=== PATIENT | female | born 1940 | race Hispanic/Latino ===

== ENCOUNTER 2018-02-28 07:57 | Emergency (ER) | payer OTHER, MEDICARE ==
[2018-02-28] MEDS ORDERED: METOCLOPRAMIDE 10 MG/2 ML VIAL ONE (08:42)
[2018-02-28] MEDS ORDERED: DiphenhydrAMINE HCL 25 MG/10 ML ELIXIR UDCUP ONE (08:42)
[2018-02-28 08:43] LABS: BASOPHILS % (AUTO) 0.5 % (0.0-5.0); EOSINOPHILS % (AUTO) 1.9 % (0.0-8.0); LYMPHOCYTES % (AUTO) 16.3 % (21.0-51.0); MEAN CORPUSCULAR HEMOGLOBIN 29.9 pg (27.0-33.0); MEAN CORPUSCULAR HGB CONC 34.2 g/dL (32.0-36.0); MEAN CORPUSCULAR VOLUME 87.5 fL (79-99); MONOCYTES % (AUTO) 5.1 % (3.0-13.0); NEUTROPHILS % (AUTO) 76.2 % (40.0-77.0); PLATELET COUNT (AUTO) 237 K/uL (130-400); RED BLOOD CELL COUNT(AUTO) 4.46 MIL/uL (4.00-5.50); RED CELL DISTRIBUTION WIDTH 14.4 % (11.0-15.5); WHITE BLOOD COUNT (AUTO) 9.4 K/uL (4.8-10.8)
[2018-02-28] MEDS ORDERED: ONDANSETRON HCL MDV 20ML 2 MG/ML VIAL ONE (08:43)
[2018-02-28] MEDS ORDERED: MORPHINE SULFATE 4 MG/1ML SYG ONE (08:44)
[2018-02-28 08:58] LABS: ALBUMIN 3.8 g/dL (3.5-5.0); BILIRUBIN,TOTAL 0.4 mg/dL (0.2-1.0); TOTAL PROTEIN, SERUM 7.9 g/dL (6.0-8.3)
== END 2018-02-28 11:46 | disposition home or self-care (01) ==
LOC: EDH 07:57
DX: G44.209 Tension-type headache, unspecified, not intractable (principal); R42 Dizziness and giddiness; Z88.6 Allergy status to analgesic agent
CPT/HCPCS: 36415; 80053; 84484; 85025; 93005; 96374; 96375; 99285; J2270; J2765

== ENCOUNTER 2018-05-15 07:56 | Emergency (ER) | payer OTHER, MEDICARE ==
[2018-05-15 08:32] LABS: BASOPHILS % (AUTO) 0.5 % (0.0-5.0); EOSINOPHILS % (AUTO) 2.2 % (0.0-8.0); HEMATOCRIT 37.2 % (36-48); LYMPHOCYTES % (AUTO) 12.2 % (21.0-51.0); MEAN CORPUSCULAR HEMOGLOBIN 30.1 pg (27.0-33.0); MEAN CORPUSCULAR VOLUME 88.5 fL (79-99); MONOCYTES % (AUTO) 7.7 % (3.0-13.0); NEUTROPHILS % (AUTO) 77.4 % (40.0-77.0); PLATELET COUNT (AUTO) 287 K/uL (130-400); RED BLOOD CELL COUNT(AUTO) 4.21 MIL/uL (4.00-5.50); RED CELL DISTRIBUTION WIDTH 13.9 % (11.0-15.5); WHITE BLOOD COUNT (AUTO) 7.4 K/uL (4.8-10.8)
[2018-05-15 08:39] LABS: CREATININE 0.8 mg/dL (0.5-1.5); POTASSIUM 4.4 mmol/L (3.5-5.1)
[2018-05-15 08:43] LABS: ALBUMIN 3.7 g/dL (3.5-5.0); BILIRUBIN,TOTAL 0.3 mg/dL (0.2-1.0); TOTAL PROTEIN, SERUM 8.2 g/dL (6.0-8.3)
[2018-05-15] MEDS ORDERED: SODIUM CHLORIDE 0.9% 1000ML 1,000 ML IV ONE (09:05)
[2018-05-15] MEDS ORDERED: METHYLPREDNISOLONE SOD SUCC 125MG/2ML VIAL ONE (09:06)
[2018-05-15] MEDS ORDERED: IPRATROPIUM/ALBUTEROL SULFATE 3 ML SOLUTION IH ONE (09:10)
[2018-05-15] MEDS ORDERED: CLONIDINE HCL 0.1 MG TABLET ONE (10:29)
== END 2018-05-15 10:49 | disposition home or self-care (01) ==
LOC: EDH 07:56
DX: J11.1 Influenza due to unidentified influenza virus with other respiratory manifestations (principal); J20.9 Acute bronchitis, unspecified; Z88.0 Allergy status to penicillin; Z88.6 Allergy status to analgesic agent
CPT/HCPCS: 36415; 71046; 80053; 83605; 85025; 87040 ×2; 87804 ×2; 94640; 96374; 99284; J2930; J7030

== ENCOUNTER 2018-10-27 09:59 | Emergency (ER) | payer OTHER, MEDICARE ==
[2018-10-27] MEDS ORDERED: DiphenhydrAMINE HCL 50 MG/ML VIAL ONE (10:10)
[2018-10-27] MEDS ORDERED: ONDANSETRON HCL 4 MG/2 ML VIAL ONE (10:11)
[2018-10-27] MEDS ORDERED: KETOROLAC TROMETHAMINE 15MG/ML ONE (10:11)
[2018-10-27] MEDS ORDERED: SODIUM CHLORIDE 0.9% 1000ML 1,000 ML IV ONE (10:12)
[2018-10-27] MEDS ORDERED: PROCHLORPERAZINE EDISYLATE 10 MG/2 ML VIAL ONE (11:25)
[2018-10-27] MEDS ORDERED: SODIUM CHLORIDE 0.9% 500ML 500 ML IV ONE (11:26)
[2018-10-27 12:28] LABS: APPEARANCE,URINE Clear (CLEAR); BILIRUBIN,URINE Negative (NEGATIVE); COLOR,URINE Yellow (YELLOW); GLUCOSE, URINE (UA) Negative (NEGATIVE); KETONES,URINE Negative (NEGATIVE); LEUKOCYTE ESTERASE ,URINE Trace (NEGATIVE); NITRATE,URINE Negative (NEGATIVE); OCCULT BLOOD,URINE Negative (NEGATIVE); PROTEIN,URINE Negative (NEGATIVE); UROBILINOGEN,URINE 0.2 mg/dL (0.2-1.0)
[2018-10-27 12:29] LABS: BACTERIA,URINE Rare /HPF (None Seen); RBC,URINE 0-1 /HPF (0-1); SQUAMOUS EPITHELIAL CELL,UR Rare /HPF (0-2); WBC,URINE 0-1 /HPF (0-1)
== END 2018-10-27 12:43 | disposition home or self-care (01) ==
LOC: EDH 09:59
DX: G44.89 Other headache syndrome (principal); I10 Essential (primary) hypertension; Z98.51 Tubal ligation status; Z88.6 Allergy status to analgesic agent; Z88.0 Allergy status to penicillin
CPT/HCPCS: 70450; 81001; 96374; 96375; 99285; J0780; J1200; J1885; J2405; J7030; J7040

== ENCOUNTER 2019-09-30 07:41 | Inpatient (IN) | payer OTHER, MEDICARE ==
[~2019-09-30] VITALS: Ht 162.6 cm; Wt 55.7 kg
[2019-09-30 08:54] LABS: BASOPHILS % (AUTO) 0.6 % (0.0-5.0); EOSINOPHILS % (AUTO) 1.7 % (0.0-8.0); HEMATOCRIT 35.2 % (36-48); LYMPHOCYTES % (AUTO) 16.2 % (21.0-51.0); MEAN CORPUSCULAR HEMOGLOBIN 27.8 pg (27.0-33.0); MEAN CORPUSCULAR HGB CONC 31.5 g/dL (32.0-36.0); MONOCYTES % (AUTO) 5.5 % (3.0-13.0); NEUTROPHILS % (AUTO) 75.8 % (40.0-77.0); PLATELET COUNT (AUTO) 249 K/uL (130-400); RED CELL DISTRIBUTION WIDTH 13.7 % (11.0-15.5); WHITE BLOOD COUNT (AUTO) 8.2 K/uL (4.8-10.8)
[2019-09-30 09:03] LABS: CREATININE 0.9 mg/dL (0.5-1.5); POTASSIUM 3.9 mmol/L (3.5-5.1)
[2019-09-30 09:06] LABS: INR 1.01 (0.85-1.15); PARTIAL THROMBOPLASTIN TIME 24.1 SEC (26.3-35.5); PROTHROMBIN TIME 10.9 SEC (9.6-11.6)
[2019-09-30] MEDS ORDERED: ALBUTEROL INHALER 90MCG/INH IH ONE (09:06)
[2019-09-30] MEDS ORDERED: MAGNESIUM 2GM PREMIX 50ML 50 ML IV ONE ×2 (09:06→09:09)
[2019-09-30] MEDS ORDERED: METHYLPREDNISOLONE SOD SUCC 125MG/2ML VIAL ONE ×2 (09:06→09:09)
[2019-09-30 09:12] LABS: ALBUMIN 3.8 g/dL (3.5-5.0); BILIRUBIN,TOTAL 0.5 mg/dL (0.2-1.0); TOTAL PROTEIN, SERUM 7.4 g/dL (6.0-8.3)
[2019-09-30 09:34] LABS: B-TYPE NATRIURETIC PEPTIDE 1370 pg/mL (0-100)
[2019-09-30] MEDS ORDERED: IPRATROPIUM/ALBUTEROL SULFATE 3 ML SOLUTION IH ONE (10:02)
[2019-09-30] MEDS ORDERED: MORPHINE SULFATE 2 MG/ML 1ML SYG ONE (10:12)
[2019-09-30 10:29] LABS: ABG BASE EXCESS -4.9 mmol/L (-2.0-3.0); ABG HCO3 21.6 mmol/L (21.0-28.0); ABG OXYGEN SATURATION 91.2 % (95.0-99.0); ABG PCO2 45 mmHg (32-45)
[2019-09-30] MEDS ORDERED: MAGNESIUM 2GM PREMIX 50ML 50 ML IV PRN (11:15)
[2019-09-30] MEDS ORDERED: ACETAMINOPHEN 325 MG TAB PO PRN (11:15)
[2019-09-30] MEDS ORDERED: DiphenhydrAMINE HCL 50 MG/ML VIAL IV PRN (11:15)
[2019-09-30] MEDS ORDERED: ZOLPIDEM TARTRATE 5 MG TAB PO PRN (11:15)
[2019-09-30] MEDS ORDERED: MORPHINE SULFATE 2 MG/ML 1ML SYG IV PRN (11:15)
[2019-09-30] MEDS ORDERED: DIPHENHYDRAMINE HCL 25 MG CAPSULE PO PRN (11:15)
[2019-09-30] MEDS ORDERED: NITROGLYCERIN 0.4 MG SL TAB SL PRN (11:15)
[2019-09-30] MEDS ORDERED: POTASSIUM CHLORIDE 20MEQ/100ML 100 ML IV PRN (11:15)
[2019-09-30] MEDS ORDERED: GUAIFENESIN-DM 200/20 MG 10 ML PO PRN (11:15)
[2019-09-30] MEDS ORDERED: HYDRALAZINE HCL 20 MG/ML VIAL IV PRN (11:15)
[2019-09-30] MEDS ORDERED: ONDANSETRON HCL 4 MG/2 ML VIAL IV PRN (11:15)
[2019-09-30] MEDS ORDERED: LIDOCAINE HCL-MPF 1% 2ML VIAL IJ PRN (11:15)
[2019-09-30] MEDS ORDERED: MAG HYDROX/AL HYDROX/SIMETH ES 30 ML SUSP UDCUP PO PRN (11:15)
[2019-09-30] MEDS ORDERED: ALBUTEROL SULFATE/IPRATROPIUM 103/18 MCG/PUFF 14.7 GM INHR IH SCH (11:15)
[2019-09-30] MEDS ORDERED: ACETAMINOPHEN-CODEINE 300/30MG TAB PO PRN (11:15)
[2019-09-30] MEDS: METHYLPREDNISOLONE SOD SUCC 125MG/2ML VIAL IV SCH ×2 (11:15→20:14)
[2019-09-30] MEDS ORDERED: CEFTRIAXONE SODIUM 2 GM VIAL ONE (11:25)
[2019-09-30] MEDS ORDERED: LEVOFLOXACIN 750 MG/D5W 150 ML 0 ML ONE (11:29)
[2019-09-30] MEDS ORDERED: INSULIN HUMULIN R 100 UNIT/ML 3ML SQ SCH (11:30)
[2019-09-30] MEDS ORDERED: LEVOFLOXACIN 500 MG/D5W 100 ML 100 ML ONE (11:30)
[2019-09-30] MEDS: INSULIN HUMULIN R 100 UNIT/ML 3ML SQ SCH ×3 (11:30→20:17)
[2019-09-30] MEDS: ALBUTEROL SULFATE/IPRATROPIUM 103/18 MCG/PUFF 14.7 GM INHR IH SCH ×4 (12:15→23:52)
[2019-09-30 12:25] VITALS: BP 152/79
[2019-09-30] MEDS: CEFTRIAXONE SODIUM 1 GM IV SCH (14:58)
[2019-09-30] MEDS: AZITHROMYCIN 500MG+NS 250ML 250 ML IV SCH (14:58)
[2019-09-30] MEDS: FUROSEMIDE 10 MG/ML 4ML VIAL IV SCH ×2 (14:59→23:51)
--- NOTE | 2019-09-30 15:19 | NUR ---
PT C/O NAUSEA RAMSEY HA AWARE, ZOFRAN 4MG IV GIVEN.
[2019-09-30 16:45] VITALS: BP 124/71
--- NOTE | 2019-09-30 16:57 | NUR ---
INSAIMA SPOKE TO ROME, SON, VIA PHONE- STATES PATIENT LIVES WITH HIM, REQUIRES NO DME AT PRESENT BUT HAD WKR AVAILABLE, DAUGHTER EZEQUIEL IS PROVIDER; NUMBER IN FACE SHEE INCORRECT, PROVIDED NEW NUMBER [id number]; EZEQUIEL DRIVES TO APPOINTMENT AND ASSIST WITH ADLS, HOME SAFE AND ACCESSIBLE , DCP IS HOME Addendum: 09/30/19 at 1659 by LISSETH SALCIDO RN CM Amended: Links added.
[2019-09-30 17:18] LABS: TROPONIN I 0.1 ng/mL (0.00-0.06)
[2019-09-30 20:08] VITALS: BP 130/72
[2019-09-30] MEDS: OSELTAMIVIR PHOSPHATE 75 MG CAP PO SCH (20:14)
[2019-09-30] MEDS: MONTELUKAST SODIUM 10 MG TAB PO SCH (20:14)
[2019-09-30] MEDS: FAMOTIDINE/PF 20 MG/2 ML VIAL IV SCH (20:14)
[2019-09-30] MEDS ORDERED: PNEUMOCOCCAL VACCINE POLYVALENT 0.5 ML/VIAL [PPV] IM SCH (21:00)
[2019-09-30 22:17] LABS: TROPONIN I 0.14 ng/mL (0.00-0.06)
[2019-10-01] VITALS (7 sets, daily range): BP systolic 122–143; BP diastolic 66–81
[2019-10-01] MEDS: ALBUTEROL SULFATE/IPRATROPIUM 103/18 MCG/PUFF 14.7 GM INHR IH SCH ×5 (04:15→19:58)
[2019-10-01 04:39] LABS: BASOPHILS % (AUTO) 0.2 % (0.0-5.0); HEMATOCRIT 33.7 % (36-48); LYMPHOCYTES % (AUTO) 9.7 % (21.0-51.0); MEAN CORPUSCULAR HEMOGLOBIN 28.3 pg (27.0-33.0); MEAN CORPUSCULAR HGB CONC 32.3 g/dL (32.0-36.0); MEAN CORPUSCULAR VOLUME 87.5 fL (79-99); MONOCYTES % (AUTO) 2.5 % (3.0-13.0); NEUTROPHILS % (AUTO) 86.8 % (40.0-77.0); PLATELET COUNT (AUTO) 257 K/uL (130-400); RED BLOOD CELL COUNT(AUTO) 3.85 MIL/uL (4.00-5.50); RED CELL DISTRIBUTION WIDTH 13.6 % (11.0-15.5); WHITE BLOOD COUNT (AUTO) 6.5 K/uL (4.8-10.8)
[2019-10-01] MEDS: METHYLPREDNISOLONE SOD SUCC 125MG/2ML VIAL IV SCH ×3 (04:51→18:27)
[2019-10-01 04:59] LABS: INR 1.07 (0.85-1.15); PARTIAL THROMBOPLASTIN TIME 23.9 SEC (26.3-35.5); PROTHROMBIN TIME 11.5 SEC (9.6-11.6)
[2019-10-01 05:03] LABS: B-TYPE NATRIURETIC PEPTIDE 3430 pg/mL (0-100)
[2019-10-01 05:15] LABS: ALANINE AMINOTRANSFERASE 19 U/L (12-78); ALBUMIN 3.9 g/dL (3.5-5.0); ASPARTATE AMINOTRANSFERASE 19 U/L (10-37); BILIRUBIN,TOTAL 0.5 mg/dL (0.2-1.0); CARBON DIOXIDE 30 mmol/L (21-32); CHLORIDE 100 mmol/L (101-111); CREATINE KINASE, TOTAL 229 U/L (21-232); GLOMERULAR FILTR. RATE CALC 57 mL/min (>60); GLUCOSE,RANDOM 135 mg/dL (70-105); LACTATE DEHYDROGENASE 239 U/L (81-234); MYOGLOBIN 220 ng/mL (10-92); POTASSIUM 3.2 mmol/L (3.5-5.1); SODIUM SERUM 137 mmol/L (136-145); TOTAL PROTEIN, SERUM 7.7 g/dL (6.0-8.3); TROPONIN I 0.18 ng/mL (0.00-0.06); UREA NITROGEN, BLOOD 19 mg/dL (7-18)
[2019-10-01 05:42] LABS: ERYTHROCYTE SEDIMENTATION RATE 15 MM/HR (0-30)
[2019-10-01] MEDS: INSULIN HUMULIN R 100 UNIT/ML 3ML SQ SCH ×4 (06:07→21:00)
[2019-10-01] MEDS: POTASSIUM CHLORIDE 10% ELIXIR 20 MEQ/15 ML UDCUP PO PRN ×3 (06:17→12:56)
--- NOTE | 2019-10-01 06:18 | NUR ---
CRITICAL LAB VALUE 0515: BENCHMARK COMPUTER ENGINEER PAGED AT THIS TIME BY SALES SERVICE MANAGER 0520: IZABELLA UMANA RETURNED PAGE. PRIMARY NURSE, MATI MCKEON RN, INFORMED COMPUTER ENGINEER OF D-DIMER VALUE OF [id number]. NO NEW ORDERS RECEIVED
[2019-10-01] MEDS: OSELTAMIVIR PHOSPHATE 75 MG CAP PO SCH ×2 (07:47→19:54)
[2019-10-01] MEDS: FAMOTIDINE/PF 20 MG/2 ML VIAL IV SCH ×2 (07:47→19:54)
[2019-10-01] MEDS ORDERED: ENOXAPARIN SODIUM 40 MG/0.4 ML SYRINGE SQ SCH (09:00)
--- NOTE | 2019-10-01 12:38 | NUR ---
DR. RON IN ROOM SPEAKING WITH PT. RE:PLAN OF CARE. QUESTIONS ANSWERED BY DR. RON; PT. VERBALIZED UNDERSTANDING.
[2019-10-01] MEDS: CEFTRIAXONE SODIUM 1 GM IV SCH (12:52)
[2019-10-01] MEDS: FUROSEMIDE 10 MG/ML 4ML VIAL IV SCH (12:52)
[2019-10-01] MEDS: LACTULOSE 20 GM/30 ML UDCUP PO PRN (12:52)
[2019-10-01] MEDS: AZITHROMYCIN 500MG+NS 250ML 250 ML IV SCH (12:52)
[2019-10-01 13:06] LABS: ABG BASE EXCESS 2.8 mmol/L (-2.0-3.0); ABG HCO3 27.8 mmol/L (21.0-28.0); ABG OXYGEN SATURATION 97.2 % (95.0-99.0); ABG PCO2 44 mmHg (32-45)
[2019-10-01 13:06] LABS: ABG BASE EXCESS -4.6 mmol/L (-2.0-3.0); ABG HCO3 21.5 mmol/L (21.0-28.0); ABG OXYGEN SATURATION 96.8 % (95.0-99.0); ABG PCO2 43 mmHg (32-45)
[2019-10-01] MEDS: ACETAMINOPHEN 325 MG TAB PO PRN (16:32)
--- NOTE | 2019-10-01 17:04 | NUR ---
BLOOD SUGAR 67. DENIES C/O AT THIS TIME. PT. PROVIDED WITH DINNER.
[2019-10-01] MEDS: MONTELUKAST SODIUM 10 MG TAB PO SCH (19:54)
[2019-10-01] MEDS: ENOXAPARIN SODIUM 30 MG/0.3 ML SQ SCH (19:55)
[2019-10-02] MEDS: ALBUTEROL SULFATE/IPRATROPIUM 103/18 MCG/PUFF 14.7 GM INHR IH SCH ×6 (00:15→20:39)
[2019-10-02] MEDS: FUROSEMIDE 10 MG/ML 4ML VIAL IV SCH ×2 (00:16→13:01)
[2019-10-02] MEDS: METHYLPREDNISOLONE SOD SUCC 125MG/2ML VIAL IV SCH ×3 (03:07→20:28)
[2019-10-02 03:26] VITALS: BP 120/70
[2019-10-02 04:39] LABS: BASOPHILS % (AUTO) 0.1 % (0.0-5.0); HEMATOCRIT 33.9 % (36-48); LYMPHOCYTES % (AUTO) 5.7 % (21.0-51.0); MEAN CORPUSCULAR HEMOGLOBIN 27.9 pg (27.0-33.0); MEAN CORPUSCULAR HGB CONC 31.6 g/dL (32.0-36.0); MEAN CORPUSCULAR VOLUME 88.5 fL (79-99); NEUTROPHILS % (AUTO) 89.7 % (40.0-77.0); PLATELET COUNT (AUTO) 266 K/uL (130-400); RED BLOOD CELL COUNT(AUTO) 3.83 MIL/uL (4.00-5.50); RED CELL DISTRIBUTION WIDTH 13.8 % (11.0-15.5); WHITE BLOOD COUNT (AUTO) 12.9 K/uL (4.8-10.8)
[2019-10-02 04:56] LABS: ALBUMIN 3.7 g/dL (3.5-5.0); BILIRUBIN,TOTAL 0.3 mg/dL (0.2-1.0); CREATININE 1.2 mg/dL (0.5-1.5); MAGNESIUM 2.5 mg/dL (1.80-2.40); PHOSPHORUS 4.4 mg/dL (2.5-4.9); POTASSIUM 4.5 mmol/L (3.5-5.1); TOTAL PROTEIN, SERUM 7.3 g/dL (6.0-8.3)
[2019-10-02 05:08] LABS: B-TYPE NATRIURETIC PEPTIDE 1560 pg/mL (0-100)
[2019-10-02] MEDS: INSULIN HUMULIN R 100 UNIT/ML 3ML SQ SCH ×4 (06:44→21:00)
[2019-10-02 08:36] VITALS: BP 130/72
[2019-10-02] MEDS: OSELTAMIVIR PHOSPHATE 75 MG CAP PO SCH ×2 (09:38→20:27)
[2019-10-02] MEDS: FAMOTIDINE/PF 20 MG/2 ML VIAL IV SCH ×2 (09:38→20:27)
[2019-10-02] MEDS: ENOXAPARIN SODIUM 30 MG/0.3 ML SQ SCH ×2 (09:54→20:28)
--- NOTE | 2019-10-02 11:07 | NUR ---
CHART REVIEWED, DCP REAMINS TO HOME. STILL NICOLLE CROSS PRCR PANEL NEG, 02 97 ON 2 LITRES, FAMILY EMPHASIZED PT WOULD BE HAPPIER AT HOME WHEN DCD. WILL EXPECT THAT ON DISCHARGE. Addendum: 10/02/19 at 1108 by LISSETH SALCIDO RN CM Amended: Links added.
[2019-10-02 12:10] VITALS: BP 119/70
[2019-10-02] MEDS: CEFTRIAXONE SODIUM 1 GM IV SCH (12:57)
[2019-10-02] MEDS: AZITHROMYCIN 500MG+NS 250ML 250 ML IV SCH (12:57)
[2019-10-02 16:35] VITALS: BP 118/70
[2019-10-02 20:24] VITALS: BP 115/67
[2019-10-02] MEDS: MONTELUKAST SODIUM 10 MG TAB PO SCH (20:27)
[2019-10-02 23:55] VITALS: BP 122/67
[2019-10-03] MEDS: METHYLPREDNISOLONE SOD SUCC 125MG/2ML VIAL IV SCH ×2 (02:09→09:48)
[2019-10-03] MEDS: FUROSEMIDE 10 MG/ML 4ML VIAL IV SCH ×2 (02:10→13:26)
[2019-10-03 04:12] VITALS: BP 125/75
--- NOTE | 2019-10-03 04:50 | NUR ---
PT ARRIVED TO FLOOR. TRANSFERRED DUE TO NEGATIVE COVID RESULTS. PT STABLE. CAME IN DUE TO ASTHMA EXACERBATION.
[2019-10-03 06:13] LABS: HEMATOCRIT 35.4 % (36-48); LYMPHOCYTES % (AUTO) 6.9 % (21.0-51.0); MEAN CORPUSCULAR HEMOGLOBIN 28.2 pg (27.0-33.0); MEAN CORPUSCULAR HGB CONC 32.2 g/dL (32.0-36.0); MEAN CORPUSCULAR VOLUME 87.6 fL (79-99); MONOCYTES % (AUTO) 2.1 % (3.0-13.0); NEUTROPHILS % (AUTO) 90.3 % (40.0-77.0); PLATELET COUNT (AUTO) 244 K/uL (130-400); RED BLOOD CELL COUNT(AUTO) 4.04 MIL/uL (4.00-5.50); RED CELL DISTRIBUTION WIDTH 13.6 % (11.0-15.5); WHITE BLOOD COUNT (AUTO) 9.1 K/uL (4.8-10.8)
[2019-10-03] MEDS: ALBUTEROL SULFATE/IPRATROPIUM 103/18 MCG/PUFF 14.7 GM INHR IH SCH ×4 (06:15→16:15)
[2019-10-03 06:21] LABS: CREATININE 1.2 mg/dL (0.5-1.5)
[2019-10-03] MEDS: INSULIN HUMULIN R 100 UNIT/ML 3ML SQ SCH ×4 (06:39→21:00)
[2019-10-03 08:00] VITALS: BP 133/76
[2019-10-03 08:32] LABS: ABG BASE EXCESS 4.9 mmol/L (-2.0-3.0); ABG HCO3 29.8 mmol/L (21.0-28.0); ABG OXYGEN SATURATION 98.4 % (95.0-99.0); ABG PCO2 44 mmHg (32-45)
[2019-10-03] MEDS: FAMOTIDINE/PF 20 MG/2 ML VIAL IV SCH ×2 (09:46→22:01)
[2019-10-03] MEDS: OSELTAMIVIR PHOSPHATE 75 MG CAP PO SCH ×2 (09:47→21:57)
[2019-10-03] MEDS: ENOXAPARIN SODIUM 30 MG/0.3 ML SQ SCH ×2 (09:47→22:01)
[2019-10-03] MEDS: ACETAMINOPHEN 325 MG TAB PO PRN (09:47)
[2019-10-03] MEDS: CEFTRIAXONE SODIUM 1 GM IV SCH (09:51)
[2019-10-03] MEDS: AZITHROMYCIN 500MG+NS 250ML 250 ML IV SCH (09:51)
[2019-10-03 11:37] VITALS: BP 124/65
[2019-10-03 16:00] VITALS: BP 120/70
[2019-10-03 19:00] VITALS: BP 134/71
--- NOTE | 2019-10-03 21:00 | NUR ---
PT RA, NO DISTRESS NOTED. ABLE TO TAKE MEDICATIONS WELL. STATES NO COMPLAINTS. ABLE TO AMBULATE. PENDING TO HAVE FAMILY SPEAK WITH DR. MONTANA REGARDING TREATMENT PLAN.
[2019-10-03] MEDS: MONTELUKAST SODIUM 10 MG TAB PO SCH (21:57)
[2019-10-03] MEDS: CARVEDILOL 12.5 MG TABLET PO SCH (21:57)
[2019-10-03 23:00] VITALS: BP 140/70
[2019-10-04] MEDS: FUROSEMIDE 10 MG/ML 4ML VIAL IV SCH ×2 (01:28→16:44)
[2019-10-04 03:00] VITALS: BP 115/57
[2019-10-04 04:44] LABS: BASOPHILS % (AUTO) 0.1 % (0.0-5.0); HEMATOCRIT 36.5 % (36-48); LYMPHOCYTES % (AUTO) 15.2 % (21.0-51.0); MEAN CORPUSCULAR HGB CONC 32.3 g/dL (32.0-36.0); MEAN CORPUSCULAR VOLUME 86.7 fL (79-99); MONOCYTES % (AUTO) 8.2 % (3.0-13.0); NEUTROPHILS % (AUTO) 75.8 % (40.0-77.0); PLATELET COUNT (AUTO) 291 K/uL (130-400); RED BLOOD CELL COUNT(AUTO) 4.21 MIL/uL (4.00-5.50); RED CELL DISTRIBUTION WIDTH 13.4 % (11.0-15.5); WHITE BLOOD COUNT (AUTO) 10.2 K/uL (4.8-10.8)
[2019-10-04 04:46] LABS: CREATININE 1.1 mg/dL (0.5-1.5); POTASSIUM 3.5 mmol/L (3.5-5.1)
[2019-10-04] MEDS: INSULIN HUMULIN R 100 UNIT/ML 3ML SQ SCH ×4 (06:57→20:55)
[2019-10-04 07:00] VITALS: BP 129/81
[2019-10-04] MEDS ORDERED: REGADENOSON 0.4 MG/5 ML PF SYG IVP SCH (07:15)
[2019-10-04] MEDS: ALBUTEROL SULFATE/IPRATROPIUM 103/18 MCG/PUFF 14.7 GM INHR IH SCH ×3 (08:15→17:18)
[2019-10-04] MEDS: CEFTRIAXONE SODIUM 1 GM IV SCH (10:48)
[2019-10-04] MEDS: LISINOPRIL 5 MG TABLET PO SCH (10:49)
[2019-10-04] MEDS: PREDNISONE 10 MG TABLET PO SCH (10:49)
[2019-10-04] MEDS: CARVEDILOL 12.5 MG TABLET PO SCH ×2 (10:50→19:37)
[2019-10-04] MEDS: ENOXAPARIN SODIUM 30 MG/0.3 ML SQ SCH ×2 (10:52→19:37)
[2019-10-04] MEDS: AZITHROMYCIN 500MG+NS 250ML 250 ML IV SCH (10:53)
[2019-10-04 11:00] VITALS: BP 120/72
[2019-10-04] MEDS: OSELTAMIVIR PHOSPHATE 75 MG CAP PO SCH ×2 (11:09→19:37)
[2019-10-04] MEDS: LACTULOSE 20 GM/30 ML UDCUP PO PRN ×2 (16:44→19:37)
[2019-10-04] MEDS: POTASSIUM CHLORIDE 10% ELIXIR 20 MEQ/15 ML UDCUP PO PRN ×2 (16:45→18:48)
[2019-10-04 17:00] VITALS: BP 112/58
[2019-10-04] MEDS: MONTELUKAST SODIUM 10 MG TAB PO SCH (19:37)
[2019-10-04 20:00] VITALS: BP 100/56
--- NOTE | 2019-10-04 20:00 | NUR ---
PT GIVEN LACTULOSE. STATED HAS BEEN CONSTIPATED. LAST BM NOTED WAS 10/01. WAS GIVEN ONE DURING THE DAY BUT SHE STATES SHE SPILLED IT.
[2019-10-05] VITALS: BP 108/57
[2019-10-05 04:00] VITALS: BP 108/62
[2019-10-05 04:59] LABS: EOSINOPHILS % (AUTO) 0.1 % (0.0-8.0); HEMATOCRIT 38.2 % (36-48); MEAN CORPUSCULAR HGB CONC 32.7 g/dL (32.0-36.0); MEAN CORPUSCULAR VOLUME 85.7 fL (79-99); MONOCYTES % (AUTO) 9.2 % (3.0-13.0); NEUTROPHILS % (AUTO) 66.2 % (40.0-77.0); PLATELET COUNT (AUTO) 287 K/uL (130-400); RED BLOOD CELL COUNT(AUTO) 4.46 MIL/uL (4.00-5.50); RED CELL DISTRIBUTION WIDTH 13.3 % (11.0-15.5); WHITE BLOOD COUNT (AUTO) 9.6 K/uL (4.8-10.8)
[2019-10-05 05:17] LABS: CREATININE 1.2 mg/dL (0.5-1.5); POTASSIUM 3.2 mmol/L (3.5-5.1)
[2019-10-05] MEDS: POTASSIUM CHLORIDE 20 MEQ ERTAB PO PRN ×2 (05:20→05:36)
[2019-10-05 05:30] LABS: B-TYPE NATRIURETIC PEPTIDE 1560 pg/mL (0-100)
[2019-10-05] MEDS: FUROSEMIDE 10 MG/ML 4ML VIAL IV SCH ×2 (05:36→16:39)
[2019-10-05] MEDS: ALBUTEROL SULFATE/IPRATROPIUM 103/18 MCG/PUFF 14.7 GM INHR IH SCH ×4 (05:36→15:21)
[2019-10-05] MEDS: LACTULOSE 20 GM/30 ML UDCUP PO PRN (05:41)
[2019-10-05] MEDS: INSULIN HUMULIN R 100 UNIT/ML 3ML SQ SCH ×4 (06:25→20:03)
[2019-10-05 07:00] VITALS: BP 95/55
[2019-10-05] MEDS: OSELTAMIVIR PHOSPHATE 75 MG CAP PO SCH (08:27)
[2019-10-05] MEDS: PREDNISONE 10 MG TABLET PO SCH (08:27)
[2019-10-05] MEDS: LISINOPRIL 5 MG TABLET PO SCH (08:28)
[2019-10-05] MEDS: CARVEDILOL 12.5 MG TABLET PO SCH ×2 (08:28→20:14)
[2019-10-05] MEDS: AZITHROMYCIN 500MG+NS 250ML 250 ML IV SCH (08:29)
[2019-10-05] MEDS: CEFTRIAXONE SODIUM 1 GM IV SCH (08:29)
[2019-10-05] MEDS: ENOXAPARIN SODIUM 30 MG/0.3 ML SQ SCH ×2 (08:37→20:14)
[2019-10-05] MEDS: ACETAMINOPHEN 325 MG TAB PO PRN (08:40)
[2019-10-05 12:10] VITALS: BP 90/47
[2019-10-05 15:00] VITALS: BP 116/54
[2019-10-05 20:00] VITALS: BP 106/56
[2019-10-05] MEDS: MONTELUKAST SODIUM 10 MG TAB PO SCH (20:15)
[2019-10-06] VITALS (7 sets, daily range): BP systolic 95–124; BP diastolic 53–66
[2019-10-06 04:00] LABS: CREATININE 1.1 mg/dL (0.5-1.5); POTASSIUM 3.4 mmol/L (3.5-5.1)
[2019-10-06] MEDS: INSULIN HUMULIN R 100 UNIT/ML 3ML SQ SCH ×4 (06:04→20:40)
[2019-10-06] MEDS: FUROSEMIDE 10 MG/ML 4ML VIAL IV SCH (06:24)
[2019-10-06] MEDS: POTASSIUM CHLORIDE 20 MEQ ERTAB PO PRN (06:27)
[2019-10-06] MEDS: ALBUTEROL SULFATE/IPRATROPIUM 103/18 MCG/PUFF 14.7 GM INHR IH SCH ×4 (08:15→20:15)
[2019-10-06] MEDS: ENOXAPARIN SODIUM 30 MG/0.3 ML SQ SCH ×2 (08:42→20:48)
[2019-10-06] MEDS: CEFTRIAXONE SODIUM 1 GM IV SCH (08:42)
[2019-10-06] MEDS: PREDNISONE 10 MG TABLET PO SCH (08:42)
[2019-10-06] MEDS: POTASSIUM CHLORIDE 10% ELIXIR 20 MEQ/15 ML UDCUP PO PRN (08:43)
[2019-10-06] MEDS: CARVEDILOL 12.5 MG TABLET PO SCH (09:00)
[2019-10-06] MEDS: LISINOPRIL 5 MG TABLET PO SCH (09:00)
--- NOTE | 2019-10-06 14:17 | NUR ---
CARDIOLOGY DR MONTANA PAGED. @ 1685 CALL BACK RECEIVED FROM MD. PT'S STATUS & PLAN OF CARE REVIEWED. CHANGES MADE TO PT'S MEDICATIONS. ORDERS RECEIVED & ENTERED. PT & FAMILY UPDATED ON CHANGES MADE TO MEDICATIONS. PT TO F/U W/DR MONTANA IN 2 WEEKS.
--- NOTE | 2019-10-06 14:42 | NUR ---
MD SANGEETHA YIP NP NOTIFIED OF DR MONTANA'S ORDERS & PLAN OF CARE.
[2019-10-06] MEDS ORDERED: CARVEDILOL 6.25 MG TABLET PO SCH (15:21)
--- NOTE | 2019-10-06 15:27 | NUR ---
MURPHY SCREEN - LOS X 6 DAYS Pt admitted with Hypoxemia, Respiratory Failure. Pt tolerating Heart healthy diet order with no report of GI distress, Good PO intake (75-100%). BMI 21.3 at 79 years of age. Recommend continue Heart Healthy Diet Order Recommend 1500mL Fluid Restriction, per EMR Recommend 30mL ProMod QD RD to continue to monitor. Please notify as nutrition concerns arise. Thank you. Addendum: 10/06/19 at [address] RD Amended: Links added.
[2019-10-06] MEDS: MONTELUKAST SODIUM 10 MG TAB PO SCH (20:48)
[2019-10-06] MEDS: CARVEDILOL 6.25 MG TABLET PO SCH (20:49)
[2019-10-07 04:19] VITALS: BP 114/62
[2019-10-07] MEDS: INSULIN HUMULIN R 100 UNIT/ML 3ML SQ SCH ×2 (05:49→11:30)
[2019-10-07 08:00] VITALS: BP 128/69
[2019-10-07] MEDS ORDERED: SPIRONOLACTONE 25 MG TAB PO SCH (09:00)
[2019-10-07] MEDS: PREDNISONE 10 MG TABLET PO SCH (09:31)
[2019-10-07] MEDS: CARVEDILOL 6.25 MG TABLET PO SCH (09:31)
[2019-10-07] MEDS: LISINOPRIL 5 MG TABLET PO SCH (09:32)
[2019-10-07] MEDS: ENOXAPARIN SODIUM 30 MG/0.3 ML SQ SCH (09:32)
[2019-10-07] MEDS: CEFTRIAXONE SODIUM 1 GM IV SCH (09:32)
[2019-10-07] MEDS: LACTULOSE 20 GM/30 ML UDCUP PO PRN (09:41)
[2019-10-07 10:00] LABS: CREATININE 1.2 mg/dL (0.5-1.5); POTASSIUM 3.7 mmol/L (3.5-5.1)
[2019-10-07 11:28] VITALS: BP 116/74
--- NOTE | 2019-10-07 13:39 | NUR ---
UPDATED DAUGHTER VIA PHONE. GAVE PHONE # OF EZEQUIEL BRIGHT DAUGHTER WHO WILL MANAGEMENT CONSULTING PATIENT TO PRIMARY ZAINAB CARVALHO Addendum: 10/07/19 at 1340 by LISSETH SALCIDO RN CM Amended: Links added.
[2019-10-07] MEDS: ALBUTEROL SULFATE/IPRATROPIUM 103/18 MCG/PUFF 14.7 GM INHR IH SCH (15:00)
[2019-10-07] MEDS ORDERED: PRED10B PO (15:24)
[2019-10-07] MEDS ORDERED: MONT10TA21 PO (15:24)
[2019-10-07] MEDS ORDERED: LISI-617 PO (15:24)
[2019-10-07] MEDS ORDERED: CARV6.2579 PO (15:24)
[2019-10-07] MEDS ORDERED: SPIR25TA PO (15:24)
--- NOTE | 2019-10-07 17:30 | NUR ---
DISCHARGE INSTRUCTION PROVIDED TO NAJMA ,INFORMED PATIENT TO RESERVE OFFICER PRESCRIPTIONS IN HER PHARMACY THAT WERE SENT ELECTRONICALLY, PER PATIENT VERBILIZED UNDERSTANDING .
[2020-02-25] MEDS ORDERED: ALEN70TA69 PO (11:22)
[2020-02-25] MEDS ORDERED: PANT40TA55 PO (11:22)
[2020-02-25] MEDS ORDERED: ROSU5TAB12 PO (11:22)
[2020-02-25] MEDS ORDERED: ISOS30TA6 PO (11:22)
[2020-02-25] MEDS ORDERED: BACL5TAB PO (11:22)
[2020-02-25] MEDS ORDERED: CLOP75TA14 PO (11:22)
[2020-02-25] MEDS ORDERED: SACU1TAB PO (11:22)
[2020-02-25] MEDS ORDERED: ALBU8.5H8 IH (11:22)
== END 2019-10-07 17:50 | disposition home or self-care (01) | DRG 291 ==
LOC: EDH 07:41 → EDHIP 10:45 → 2DH 11:29 → 4BH 10-03 04:25 → 4DH 10-03 04:33 → 4CH 10-07 09:30
PROVIDERS: ADMIT Internal Medicine; ATTEND Internal Medicine
DX: I50.43 Acute on chronic combined systolic (congestive) and diastolic (congestive) heart failure (principal); J96.01 Acute respiratory failure with hypoxia; J18.9 Pneumonia, unspecified organism; J44.0 Chronic obstructive pulmonary disease with (acute) lower respiratory infection; J44.1 Chronic obstructive pulmonary disease with (acute) exacerbation; E87.4 Mixed disorder of acid-base balance; I42.0 Dilated cardiomyopathy; J98.11 Atelectasis; J10.1 Influenza due to other identified influenza virus with other respiratory manifestations; D72.819 Decreased white blood cell count, unspecified; Z88.6 Allergy status to analgesic agent; Z88.0 Allergy status to penicillin; Z88.5 Allergy status to narcotic agent; Z79.899 Other long term (current) drug therapy; Z03.818 Encounter for observation for suspected exposure to other biological agents ruled out
CPT/HCPCS: 36415; 36600; 71045; 71250; 78452; 80048; 80053; 82550; 82728; 82803; 82948; 83605; 83615; 83735; 83874; 83880; 84100; 84145; 84484; 85025; 85378; 85610; 85651; 85730; 86140; 87040; 87633; 87635; 87804; 90732; 93005; 93017; 93306; 93356; 94640; 94660; 94760; 96374; 99291; A9500; G0378; J0456; J0696; J1650; J1815; J1940; J1956; J2405; J2785; J2930; J3475; J3490; J7512

== ENCOUNTER 2020-02-26 07:00 | Day surgery (SDC) | payer OTHER, MEDICARE ==
[2020-02-24 13:31] LABS: BASOPHILS % (AUTO) 0.6 % (0.0-5.0); EOSINOPHILS % (AUTO) 2.1 % (0.0-8.0); HEMATOCRIT 35.8 % (36-48); LYMPHOCYTES % (AUTO) 21.9 % (21.0-51.0); MEAN CORPUSCULAR HGB CONC 32.7 g/dL (32.0-36.0); MEAN CORPUSCULAR VOLUME 91.8 fL (79-99); MONOCYTES % (AUTO) 6.2 % (3.0-13.0); NEUTROPHILS % (AUTO) 68.8 % (40.0-77.0); PLATELET COUNT (AUTO) 284 K/uL (130-400); RED CELL DISTRIBUTION WIDTH 12.9 % (11.0-15.5)
[2020-02-24 13:37] LABS: POTASSIUM 4.4 mmol/L (3.5-5.1)
[2020-02-24 13:38] LABS: APPEARANCE,URINE Clear (CLEAR); BILIRUBIN,URINE Negative (NEGATIVE); COLOR,URINE Yellow (YELLOW); GLUCOSE, URINE (UA) Negative (NEGATIVE); KETONES,URINE Negative (NEGATIVE); LEUKOCYTE ESTERASE ,URINE Trace (NEGATIVE); NITRATE,URINE Negative (NEGATIVE); OCCULT BLOOD,URINE Negative (NEGATIVE); PH,URINE 6.5 (5.0-8.0); PROTEIN,URINE Negative (NEGATIVE)
[2020-02-24 13:45] LABS: BACTERIA,URINE Rare /HPF (None Seen); INR 0.96 (0.85-1.15); PARTIAL THROMBOPLASTIN TIME 26.4 SEC (26.3-35.5); PROTHROMBIN TIME 10.4 SEC (9.6-11.6); RBC,URINE 0-1 /HPF (0-1); SQUAMOUS EPITHELIAL CELL,UR Rare /HPF (0-2); WBC,URINE 0-1 /HPF (0-1)
[2020-02-26] VITALS (11 sets, daily range): BP systolic 98–135; BP diastolic 47–62
[~2020-02-26] VITALS: Ht 162.6 cm; Wt 56.1 kg
[~2020-02-26 07:00] MED LIST: ALBU8.5H8 IH; ALEN70TA10 PO; BACL5TAB PO; CARV6.2579 PO; CLOP75TA14 PO; ISOS30TA6 PO; MONT10TA21 PO; PANT40TA55 PO; ROSU5TAB12 PO; SACU1TAB PO; SPIR25TA PO
--- NOTE | 2020-02-26 07:30 | NUR ---
preop pt arrived via w/c in no distress with daughter at side. pt here for [facility]. pt oriented to room and call light. pt connected to panel monitor
[2020-02-26] MEDS ORDERED: SODIUM CHLORIDE 0.9% 1000ML 1,000 ML IV SCH ×2 (08:00→10:15)
[2020-02-26] MEDS ORDERED: NITROGLYCERIN 2 MG/VIAL VIAL IV ONE (08:31)
[2020-02-26] MEDS ORDERED: LIDOCAINE HCL 2% 20ML ONE (08:31)
[2020-02-26] MEDS ORDERED: IOHEXOL 350 MG/ML 100ML INFUS..BTL IV ONE (08:31)
[2020-02-26] MEDS ORDERED: IOHEXOL-350 75 ML VIAL IV ONE (08:31)
[2020-02-26] MEDS ORDERED: MIDAZOLAM HCL 1 MG/ML 2ML VIAL ONE (08:31)
[2020-02-26] MEDS ORDERED: BIVALIRUDIN 250 MG/VIAL IV ONE (08:31)
--- NOTE | 2020-02-26 08:43 | NUR ---
cemetery laborer pt taken to cemetery laborer via bed in no distress by joby martini
[2020-02-26] MEDS ORDERED: LABETALOL HCL 5 MG/ML 20ML VIAL IV ONE (09:49)
--- NOTE | 2020-02-26 10:40 | NUR ---
POST CATH RECEIVED PT AND REPORT FROM [facility]. PT IN NO DISTRESS IN SUPINE POSITION. PT CONNECTED TO MONITOR. WILL CONTINUE TO ASSESS. DAUGHTER AT BEDSIDE
--- NOTE | 2020-02-26 10:45 | NUR ---
MD DR ESCOBAR IN TO SEE PT.
--- NOTE | 2020-02-26 14:00 | NUR ---
DISCHARGE PT TAKEN OUT VIA W/C IN NO DISTRESS BY MISHEL DEVINE. DAUGHTER AT SIDE. D/C INSTRUCTIONS GIVEN TO BOTH.
== END 2020-02-26 14:00 | disposition home or self-care (01) ==
LOC: DAH 07:00
PROVIDERS: ATTEND Internal Medicine Cardiovascular Disease
DX: I25.10 Atherosclerotic heart disease of native coronary artery without angina pectoris (principal); I11.0 Hypertensive heart disease with heart failure; I50.22 Chronic systolic (congestive) heart failure; I42.0 Dilated cardiomyopathy; I10 Essential (primary) hypertension; E78.5 Hyperlipidemia, unspecified; J45.909 Unspecified asthma, uncomplicated; Z88.6 Allergy status to analgesic agent; Z79.01 Long term (current) use of anticoagulants; Z98.51 Tubal ligation status; Z79.899 Other long term (current) drug therapy
CPT/HCPCS: 36415; 71045; 80048; 81001; 85025; 85610; 85730; 93005; 93458; 96360; 96361; A4215; A4216; A4221; A4222; A4223 ×3; A4606; A4663; C1760; C1894; J1644; J2250; J3490 ×3; J7030; Q9965; Q9967 ×2; 99156; 99157; J0583

== ENCOUNTER 2020-08-30 12:45 | Emergency (ER) | payer OTHER, MEDICARE ==
[~2020-08-30 12:45] MED LIST changes: -ALEN70TA10 PO; +ALEN70TA80 PO; -ISOS30TA6 PO
[2020-08-30 12:59] LABS: BASOPHILS % (AUTO) 0.6 % (0.0-5.0); EOSINOPHILS % (AUTO) 2.9 % (0.0-8.0); HEMATOCRIT 36.5 % (36-48); LYMPHOCYTES % (AUTO) 24.8 % (21.0-51.0); MEAN CORPUSCULAR HEMOGLOBIN 30.3 pg (27.0-33.0); MEAN CORPUSCULAR HGB CONC 33.7 g/dL (32.0-36.0); MEAN CORPUSCULAR VOLUME 89.9 fL (79-99); MONOCYTES % (AUTO) 6.6 % (3.0-13.0); NEUTROPHILS % (AUTO) 64.7 % (40.0-77.0); PLATELET COUNT (AUTO) 252 K/uL (130-400); RED BLOOD CELL COUNT(AUTO) 4.06 MIL/uL (4.00-5.50); RED CELL DISTRIBUTION WIDTH 12.5 % (11.0-15.5); WHITE BLOOD COUNT (AUTO) 8.3 K/uL (4.8-10.8)
[2020-08-30 13:11] LABS: CREATININE 1.4 mg/dL (0.5-1.5); POTASSIUM 5.2 mmol/L (3.5-5.1)
[2020-08-30 13:14] LABS: PROTHROMBIN TIME 10.9 SEC (9.6-11.6)
[2020-08-30 13:16] LABS: ALBUMIN 4.1 g/dL (3.5-5.0); BILIRUBIN,TOTAL 0.4 mg/dL (0.2-1.0)
[2020-08-30 15:15] LABS: APPEARANCE,URINE Clear (CLEAR); BILIRUBIN,URINE Negative (NEGATIVE); COLOR,URINE Yellow (YELLOW); GLUCOSE, URINE (UA) Negative (NEGATIVE); KETONES,URINE Negative (NEGATIVE); LEUKOCYTE ESTERASE ,URINE Trace (NEGATIVE); NITRATE,URINE Negative (NEGATIVE); OCCULT BLOOD,URINE Negative (NEGATIVE); PROTEIN,URINE Negative (NEGATIVE); UROBILINOGEN,URINE 0.2 mg/dL (0.2-1.0)
[2020-08-30 15:42] LABS: BACTERIA,URINE Rare /HPF (None Seen); RBC,URINE 0-1 /HPF (0-1)
[2020-08-30 15:43] LABS: MUCUS,URINE Rare LPF (None Seen); SQUAMOUS EPITHELIAL CELL,UR Few /HPF (0-2)
== END 2020-08-30 15:42 | disposition home or self-care (01) ==
LOC: EDH 12:45
DX: E86.0 Dehydration (principal); R94.31 Abnormal electrocardiogram [ECG] [EKG]; R79.1 Abnormal coagulation profile; I10 Essential (primary) hypertension; J45.909 Unspecified asthma, uncomplicated; Z88.0 Allergy status to penicillin; Z88.6 Allergy status to analgesic agent; Z98.51 Tubal ligation status
CPT/HCPCS: 36415; 71045; 80053; 81001; 82550; 84443; 84484; 85025; 85610; 85730; 93005